=== PATIENT | female | born 2005 | race Caucasian/White ===

== ENCOUNTER 2024-12-26 12:31 | Emergency (ER) | payer MEDICAID ==
[~2024-12-26] VITALS: Ht 157.5 cm; Wt 54.9 kg
[~2024-12-26 12:31] MED LIST: DIAZ2.5K PR
[2024-12-26 12:49] VITALS: BP 109/69; PULSE 66; TEMP 98; O2SAT 98
--- NOTE | 2024-12-26 13:20 | Physician Documentation ---
History of Present Illness ~ Chief Complaint: Nose bleed Stated Complaint: BLOODY NOSE Time Seen by MD: 12:58 HPI This is a 19-year-old female who reports a history of von Willebrand's deficiency. She was working today, when she developed a nosebleed, left. This lasted for 30 minutes, ultimately stopping prior to her arrival to the emergency department. She primarily presented here due to concerns for dizziness. Medication Reconciliation Allergies: Uncoded Allergies: PENCILLIN (Allergy, Unknown, 01/07/23) Scheduled PRN Diazepam (Diastat), 1 APPFUL GA ONCE PRN for seizures Past Medical History Past Medical History: Seizures Past Surgical History: no surgical history Drug Use: none Lives In: Home Review of Systems ROS As stated above in the HPI, otherwise all systems are reviewed and negative. Physical Exam Vital Signs: Temperature: 98.0, Source: Temporal, Heart Rate: 66, Respiratory Rate: 16, BP: 109/69, Pulse Oximetry: 98, Weight: 54.900 Oxygen Flow Rate: 0 Physical Exam General: Alert, no apparent distress. HEENT: PERRL, EOMI, no injection, moist mucous membranes. Small scabbed area left medial nostril with no active bleeding. Neck: Full range of motion. Respiratory: Lungs clear, no respiratory distress. Chest: No accessory muscle use. Cardiovascular: Regular rate and rhythm, no murmurs. Gastrointestinal: Soft, nontender, nondistended. Bowels sounds present. Extremities: Normal range of motion, no deformity. Neurologic: Oriented x4. Psychiatric: Normal mood and affect. Skin: Normal color, warm and dry. No edema, no ecchymosis. Progress Results/Orders Results/Orders Completed Orders - ELPIDIO SANFORD NP Cbc/Diff (12/26/24 12:58) Vital Signs 12/26/24 12/26/24 12:49 14:15 Temp 98.0 Pulse 66 Resp 16 16 B/P (MAP) 109/69 Pulse Ox 98 O2 Flow Rate 0 Laboratory Tests Test 12/26/24 13:34 White Blood Count 5.7 Red Blood Count 3.99 L Hemoglobin 12.8 Hematocrit 37.6 Mean Corpuscular Volume 94.3 Mean Corpuscular Hemoglobin 32.2 H Mean Corpuscular Hemoglobin Concent 34.1 Red Cell Distribution Width 13.0 Platelet Count 179 Mean Platelet Volume 10.1 Neutrophils (%) (Auto) 55.0 Lymphocytes (%) (Auto) 32.3 Monocytes (%) (Auto) 11.3 Eosinophils (%) (Auto) 1.1 Basophils (%) (Auto) 0.3 Neutrophils # (Auto) 3.1 Lymphocytes # (Auto) 1.8 Monocytes # (Auto) 0.6 Eosinophils # (Auto) 0.1 Basophils # (Auto) 0.0 CBC Comment Medical Decision Making Nose Diff. Dx: Considerations: Include: Abrasion, Anterior nasal bleed, Other, Septal hematoma Additional Comment CBC obtained due to her hx of Von Willebrand's and report of dizziness. Normal. Departure Time of Disposition: 14:11 Impression: Primary Impression: Epistaxis Condition: Stable Discharge Instructions: Nosebleed, Adult Additional Instructions: Keep the nasal passages moisturized such as with a tiny amt of vaseline each night. Avoid picking/bumping. Return if worse at any time. Referrals: NO PRIMARY CARE PROVIDER (PCP) Education Educated: Patient Educated regarding: diagnosis, treatment, prognosis, need for follow up Signature Scribe Signature: x Attestation: The note accurately reflects work and decisions made by me.Elpidio Hernandez NP 12/26/24 13:20 ELPIDIO SANFORD NP Dec 26, 2024 13:20
[2024-12-26 13:46] LABS: MEAN PLATELET VOLUME 10.1 FL (7.4-10.4); RED CELL DISTRIBUTION WIDTH 13.0 % (11.5-14.5)
[2024-12-26 14:15] VITALS: RESP 16
== END 2024-12-26 14:21 | disposition home or self-care (01) ==
LOC: ER 12:32
DX: R04.0 Epistaxis (principal)
CPT/HCPCS: 36415; 85025; 99283

== ENCOUNTER 2025-03-01 14:51 | Emergency (ER) | payer MEDICAID ==
[~2025-03-01] VITALS: Ht 157.5 cm; Wt 57.9 kg
[2025-03-01 15:21] VITALS: BP 119/72; PULSE 83; RESP 16; TEMP 97.5; O2SAT 98
--- NOTE | 2025-03-01 15:22 | Physician Documentation ---
History of Present Illness ~ Chief Complaint: Nausea Stated Complaint: NAUSEA/HEADACHE Time Seen by MD: 15:22 HPI 19-year-old female, history of a seizure disorder and reported migraines, who presents with nausea She tells me that over the past 3 days she has been having nausea. She states it feels like she needs a vomit but she has not actually vomited. This all started at [employer]. Other friends also had stomach issues after eating there. She also reports having a migraine headache. She reports a history of similar headaches in the past. She does not normally take medications for this. Today she also started her menstrual cycle. She reports having lower abdominal cramping and vaginal bleeding. She states that the cramping is worse than normal but the bleeding is normal. No definite fevers or chills. She did have some stuffy nose yesterday but not today. No sore throat. No shortness of breath or productive cough. No acid reflux symptoms. No diarrhea. She takes Depakote for her seizures, no recent medication changes Medication Reconciliation Allergies: Coded Allergies: Penicillins (Verified Allergy, Unknown, 03/01/25) Scheduled PRN Diazepam (Diastat), 1 APPFUL OR ONCE PRN for seizures Past Medical History Past Medical History: Seizures Past Surgical History: no surgical history Drug Use: none Lives In: Home Review of Systems Gastrointestinal: Reports: nausea; Denies: vomiting Female Genitalia: Denies: abnormal bleeding Physical Exam Vital Signs: Temperature: 97.5, Source: Oral, Heart Rate: 83, Respiratory Rate: 16, BP: 119/72, Pulse Oximetry: 98, Weight: 57.900 Oxygen Flow Rate: 0 Physical Exam General: This is a thin, pale, but nontoxic appearing young female, partner at bedside HEENT: Atraumatic, oropharynx is moist Heart: Regular rate and rhythm, normal-appearing peripheral perfusion Lungs: normal work of breathing, normal oxygen saturation on room air Abdomen: Soft, nondistended, no significant tenderness to deep palpation including in the lower abdomen, no rebound or guarding Neuro: Alert and oriented Psychiatric: Calm and cooperative with exam Progress Results/Orders Results/Orders Completed Orders - JARON PIMENTEL MD Hcg, Ur Ql (03/01/25 15:11) Cbc/Diff (03/01/25 15:11) BMP (03/01/25 15:11) Ua W/Microscopic, Cult If Ind (03/01/25 15:15) Lipase (03/01/25 15:25) Liver Panel (03/01/25 15:25) Valproate (03/01/25 15:25) Vital Signs 03/01/25 03/01/25 15:05 15:21 Temp 97.5 Pulse 80 83 Resp 16 16 B/P (MAP) 108/73 119/72 (88) Pulse Ox 99 98 O2 Flow Rate 0 0 Laboratory Tests Test 03/01/25 15:15 03/01/25 15:25 Urine Specimen Description Cln catch midstream Urine Color Yellow Urine Clarity Clear Urine pH 6.5 Urine Specific [place] 1.025 Urine Protein Negative Urine Glucose (UA) Negative Urine Ketones Trace H Urine Occult Blood Moderate H Urine Nitrite Negative Urine Bilirubin Negative Urine Urobilinogen 0.2 Urine Leukocyte Esterase Negative Urine RBC 0-2 Urine WBC 0-4 Urine Squamous Epithelial Cells Moderate Urine Bacteria Few Urine Mucus None seen Urine Culture Indicated Not ind Volume Urine Centrifuged 10 ml Urine HCG, Qualitative Negative Urine Comment White Blood Count 6.9 Red Blood Count 4.01 L Hemoglobin 12.6 Hematocrit 37.4 Mean Corpuscular Volume 93.3 Mean Corpuscular Hemoglobin 31.5 H Mean Corpuscular Hemoglobin Concent 33.7 Red Cell Distribution Width 13.2 Platelet Count 206 Mean Platelet Volume 9.8 Neutrophils (%) (Auto) 55.7 Lymphocytes (%) (Auto) 30.5 Monocytes (%) (Auto) 11.3 Eosinophils (%) (Auto) 2.1 Basophils (%) (Auto) 0.4 Neutrophils # (Auto) 3.8 Lymphocytes # (Auto) 2.1 Monocytes # (Auto) 0.8 Eosinophils # (Auto) 0.1 Basophils # (Auto) 0.0 CBC Comment Sodium Level 140 Potassium Level 3.8 Chloride Level 107 Carbon Dioxide Level 25.2 Anion Gap 8 Blood Urea Nitrogen 17 Creatinine 0.59 Estimated GFR/1.73 m2 > 90 BUN/Creatinine Ratio 28.8 H Glucose Level 94 Calcium Level 8.6 Total Bilirubin 0.4 Direct Bilirubin 0.1 Aspartate Amino Transf (AST/SGOT) 11 Alanine Aminotransferase (ALT/SGPT) 10 L Alkaline Phosphatase 43 L Total Protein 7.8 Albumin 3.6 Globulin 4.2 Albumin/Globulin Ratio 0.9 L Lipase 35 Chemistry Comments Valproic Acid (Depakene) Level 93 Medical Decision Making Additional information obtaine: family Findings Family confirms symptoms started after eating at [employer] Diff Dx GI Bleed:Consideration: Include: Esophagitis, Gastritis Diff Dx Pain:Considerations: Include: Cholelithasis Diff Dx N/V/D:Considerations: Include: Electrolyte imbalance, Food poisoning, Gastroenteritis Diff Dx Rectal:Considerations: Unlikely: Perirectal abscess Additional Comments The patient presents with 3 days of nausea. She otherwise has a benign abdominal exam. She declined any treatments including IV fluids, pain or nausea medications. Laboratory testing is reassuring including no anemia, no acute kidney injury, normal electrolytes, no UTI, and she is not . Depakote level is normal. Overall, no dangerous cause identified for her symptoms. Hopefully this is related to food poisoning. I again offered multiple treatments but she declined. She will be discharged home with outpatient follow up. She was given a work note and a copy of her laboratory testing. Departure Time of Disposition: 16:58 Disposition: 01 HOME / SELF CARE / HOMELESS Impression: Primary Impression: Nausea Condition: Stable Discharge Instructions: Nausea, Adult Referrals: NO PRIMARY CARE PROVIDER (PCP) Education Educated: Patient, Family Educated regarding: diagnosis, treatment, need for follow up Signature Scribe Signature: na Attestation: JARON Pop MD Mar 01, 2025 15:22
[2025-03-01 15:34] LABS: URINE HCG NEGATIVE (NEG)
[2025-03-01 15:34] LABS: MEAN PLATELET VOLUME 9.8 FL (7.4-10.4); RED CELL DISTRIBUTION WIDTH 13.2 % (11.5-14.5)
[2025-03-01 15:37] LABS: LEUKOCYTE ESTERASE ,URINE NEGATIVE (Neg); NITRITES, URINE NEGATIVE (Neg); OCCULT BLOOD,URINE MODERATE (Neg)
[2025-03-01 15:41] LABS: CREATININE 0.59 MG/DL (0.40-0.90); TOTAL CARBON DIOXIDE 25.2 MMOL/L (24-32); eCRCL 119 ML/MIN; eGFR > 90 ML/MIN
[2025-03-01 15:41] LABS: UA COLLECTION TYPE CLN CATCH MIDSTREAM
[2025-03-01 15:42] LABS: MUCUS STRANDS NONE SEEN /LPF (Neg); SQUAMOUS EPITHELIAL CELL,UR MODERATE /LPF (FEW)
[2025-03-01 16:19] LABS: VALPROATE 93 UG/ML (50-100)
== END 2025-03-01 17:04 | disposition home or self-care (01) ==
LOC: ER 14:51
DX: R11.0 Nausea (principal); G43.909 Migraine, unspecified, not intractable, without status migrainosus; Z88.0 Allergy status to penicillin
CPT/HCPCS: 36415; 80048; 80076; 80164; 81001; 81025; 83690; 85025; 99283